=== PATIENT | female | born 1970 | race Caucasian/White ===

== ENCOUNTER 2017-03-04 15:34 | Observation (INO) | payer BC ==
--- NOTE | ~2017-03-04 | CN ---
Consultation Report [facility] [address] [place]. [address] NAME: ZEHRA BIRD : 74 STATUS : ADM Joyce PAT#: [id number] AGE: 46 ADM/REG DATE : 03/04/17 MR#: [id number] REPORT SERV DATE: 03/04/17 DICTATED BY: DATE: REPORT STATUS : Draft TRANSCRIBED BY: MODL DATE: 03/04/17 NEUROLOGY CONSULTATION DATE OF CONSULTATION: 03/04/2017 REASON FOR CONSULT: Possible stroke. HISTORY OF PRESENT ILLNESS: This is a 46-year-old female who presented to [facility]. The patient was at work shortly after lunch at roughly 1315 hours. The patient was noted to have tunnel vision as well as became very diaphoretic. The patient developed right upper extremity numbness but denies any weakness. The patient denies any confusion. Denies any dysarthria. The patient feels dizzy as if the room is spinning and feels as if about to pass out; however, the patient did not loose any consciousness, remembered what has been going on. The patient otherwise denies any weakness in the lower extremity and denies any left upper extremity involvement. The patient reports feeling abnormal but otherwise denies any other symptoms. Denies any recent illness, fever, chills, nausea, vomiting, chest pain, or shortness of breath and denies any recent changes in medication. The patient's symptoms subsequently improved except for the right upper extremity numbness which has persisted. The patient still denies any focal weakness, and denies any dysarthria. The patient denies any headache and denies similar symptoms in the past. PAST MEDICAL HISTORY: The patient's past medical history is significant for history of a hysterectomy secondary to uterine cancer as well as history of asthma and diabetes. The patient has had a history of depression. The patient, upon ER presentation, was noted to have elevated blood pressure, systolic in the 200s, subsequently improved. The patient denies any history of blood pressure issues. FAMILY HISTORY: Significant for type 1 diabetes as well as father with history of stroke with the patient's mother having some mild carotid disease. The patient's family history is also significant for coronary artery disease and no family history of significant clots or pulmonary embolism. SOCIAL HISTORY: Denies tobacco, alcohol, or recreational drug usage. ALLERGIES: THE PATIENT REPORTS NO KNOWN DRUG ALLERGIES. REVIEW OF SYSTEMS: Negative except for those mentioned in the HPI. MEDICATIONS: The patient's home medications consist of 1. Albuterol. 2. Vitamin C. 3. Lipitor 20 mg p.o. daily. 4. Wellbutrin. Consultation Report [facility] [id number] [place]. [address] NAME: ZEHRA BIRD : 74 STATUS : ADM Joyce PAT#: [id number] AGE: 46 ADM/REG DATE : 03/04/17 MR#: [id number] REPORT SERV DATE: 03/04/17 DICTATED BY: DATE: REPORT STATUS : Draft TRANSCRIBED BY: MODL DATE: 03/04/17 5. Advil. 6. Megace. 7. Glucophage. 8. Zinc. PHYSICAL EXAMINATION: VITAL SIGNS: The patient at the time of evaluation demonstrated vital signs with T-max of 97.8, heart rate of 105, respirations of 16, and blood pressure of 138/71. GENERAL: The patient is well developed, well nourished, in no acute distress. CARDIOVASCULAR: Regular rate and rhythm. No carotid bruits were otherwise auscultated. PULMONARY: Examination was clear to auscultation bilaterally. NEUROLOGICAL EXAMINATION: Generally, the patient is alert and oriented to person, place, year, and month. Follows simple and 2-step commands. No dysarthria. No aphasia was otherwise appreciated. Intact registration and recall. Cranial nerves 2 through 12, pupils equal, round, and reactive to light. Extraocular eye movement was noted to be intact with intact peripheral vision. Symmetrical facial expression and sensation. Midline tongue. Normal palatal movement. Normal hearing. The patient demonstrated 5/5 bilateral upper and lower extremity strength with the patient demonstrated no pronator drift. Reports decreased sensation in the right upper extremity but otherwise was not noted to have any sensory neglect. The patient is able to decipher letters written in the palm of right hand. At the time of evaluation, the patient was noted to have deep tendon reflex of 2+ throughout. Normal fsuawj-jx-htcy examination without ataxia. Gait was deferred secondary to acute events. LABORATORY STUDIES: Demonstrated sodium 139, potassium 3.9, chloride of 103, bicarb 27, BUN of 11, creatinine of 0.83, glucose of 123, and calcium of 8.8. The patient was noted to have white blood cell count of 7.7, hemoglobin of 14.4, hematocrit of 43.7, and platelet count of 293. CT scan of the brain without contrast demonstrated no acute process with CT angiogram demonstrated no significant proximal vessel stenosis. Internal carotid artery does not appear to have any stenotic blockage. IMPRESSION: 1. Numbness symptom onset at 1315 hours with tunnel vision, diaphoresis as well as right upper extremity numbness with symptoms improve except for the numbness. NIH stroke scale was noted to be 1. CT scan of the brain otherwise demonstrated no acute event with the CT angiogram of the head and neck demonstrating no significant large vessel thrombosis or stenosis or blockage. We will admit the patient for observation and perform stroke workup and Alteplase was not offered secondary to mild sensory symptoms. RECOMMENDATIONS: 1. Observation. 2. Aspirin 325 mg p.o. daily. 3. Lipitor increased to 80 mg p.o. at bedtime. 4. No PT, OT, and Speech Therapy secondary to lack of motor symptom and no history of dysarthria. 5. MRI of the brain without contrast. Consultation Report [address] [place]. [address] NAME: ZEHRA BIRD : 74 STATUS : ADM Joyce PAT#: [id number] AGE: 46 ADM/REG DATE : 03/04/17 MR#: [id number] REPORT SERV DATE: 03/04/17 DICTATED BY: DATE: REPORT STATUS : Draft TRANSCRIBED BY: MODL DATE: 03/04/17 6. Echocardiogram with bubble study. 7. Fasting lipid panel and hemoglobin A1c. [facility]/MODL Jayjay Crowley MD / [id number] CC: Ned Colunga Jr, MD
--- NOTE | ~2017-03-04 | HP ---
History And Physical [facility] [address] [place]. [address] NAME: ZEHRA BIRD : 74 STATUS : ADM Joyce PAT#: [id number] AGE: 46 ADM/REG DATE : 03/04/17 MR#: [id number] REPORT SERV DATE: 03/05/17 DICTATED BY: JR. COLUNGA WILLIAM JOHN DATE: 03/04/17 REPORT STATUS : Draft TRANSCRIBED BY: DANA DATE: 03/04/17 DATE OF ADMISSION: 03/04/2017 HISTORY OF PRESENT ILLNESS: A 46-year-old female with a history of diabetes mellitus type 2, presents to the emergency room with a presyncopal type symptoms. 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 She says about 1 p.m. she was on the phone and had sudden development of tunnel vision with a sweaty feeling. She called the nurse at the clinic who checked her blood pressure with a systolic pressure of 160 and a heart rate of 104. She then developed a tingly feeling over her whole body and subsequently had blood pressure checks with systolic pressures from 160 to 200. She was directed to the emergency room, en route she developed some right arm tingling feeling. Upon entry to the emergency room, code stroke was called. The patient had a CT of the head and was evaluated by Neurology. There was no evidence of stroke. I have been asked to admit for TIA. She denies any shaking, loss of bowel or bladder control, palpitations, or chest pain. Symptoms have currently resolved. PAST MEDICAL HISTORY: Includes, 1. History of asthma. 2. Uterine cancer with a hysterectomy in 2005. 3. Gastroesophageal reflux disease. 4. Diabetes mellitus type 2. 5. Status post cholecystectomy. 6. Status post hysterectomy. 7. History of sinus surgery. 8. Status post left Alexander cyst removal. 9. Pressure equalization tubes. 10.History of keloid removed from behind her left ear. HOME MEDICATIONS: Include, 1. Albuterol two puffs as needed. 2. Vitamin C 500 mg in the morning. 3. Lipitor 20 mg daily. 4. Bupropion 200 mg twice a day. 5. Ibuprofen 400 as needed. 6. Megace 40 mg as needed. 7. Metformin 1000 mg twice a day. 8. Zinc 50 mg daily. ALLERGIES: ALLERGIES ARE ENVIRONMENTAL. NO KNOWN DRUG ALLERGIES. FAMILY HISTORY: Father at age 64 of end-stage renal disease and diabetes. Mother living, has peripheral vascular disease. One brother living, unknown history. SOCIAL HISTORY: She lives in [place], [place], with her and children. 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. She denies alcohol, tobacco, or illicit drugs. History And Physical [address] [place]. [address] NAME: ZEHRA BIRD : 74 STATUS : ADM Joyce PAT#: [id number] AGE: 46 ADM/REG DATE : 03/04/17 MR#: [id number] REPORT SERV DATE: 03/05/17 DICTATED BY: JR. COLUNGA WILLIAM JOHN DATE: 03/04/17 REPORT STATUS : Draft TRANSCRIBED BY: DANA DATE: 03/04/17 REVIEW OF SYSTEMS: Negative in all 12 systems reviewed except nausea and anxiety. PHYSICAL EXAMINATION: VITAL SIGNS: Temperature 97.8, blood pressure 138/71, heart rate 105, respiratory rate 16. GENERAL: Patient is alert and oriented, in no acute distress. HEENT: Pupils are equal, round, and reactive to light. Extraocular motion intact. Sclerae anicteric. Oropharynx clear. NECK: Supple. No jugular venous distention, thyromegaly, or bruits. LUNGS: Clear to auscultation bilaterally with symmetrical chest rise. ABDOMEN: Soft, nontender, bowel sounds present. EXTREMITIES: No clubbing, cyanosis, edema. NEUROLOGIC: Cranial nerves 2-12 intact. Strength and sensation were full and equal throughout. LYMPH NODE SURVEY: Negative in cervical and supraclavicular region. PSYCHIATRIC: Mood and affect were appropriate. Somewhat anxious. DERMATOLOGIC: No rash or other lesions noted. LABORATORY DATA: White count 7.7, hemoglobin 14.4, platelets 293. Sodium 139, potassium 3.9, chloride 103, bicarb 27, BUN 11, creatinine 0.8, glucose 123, total protein 7.3, albumin 4, calcium 8.8, total bilirubin 2.4, alkaline phosphatase 73. Troponin I of less than 0.02. AST 15, ALT of 29. CT of the brain without acute findings. EKG shows sinus rhythm at rate of 102 without acute changes. ASSESSMENT AND PLAN: A 46-year-old female with. 1. Transient ischemic attack, likely vasovagal syndrome based on symptomatology. We will check an MRI of the brain, echocardiogram, place her on telemetry for 24 hours. She has been placed on aspirin and a high-intensity statin. We will also check a urinalysis. 2. Diabetes mellitus type 2. Place her on sliding scale insulin. 3. History of uterine cancer with a history of hysterectomy. 4. Observation status. 5. I will follow this patient. WBernadetteF/CHARITOL Ned Colunga Jr, MD / [id number] CC: Ned Colunga Jr, MD
--- NOTE | ~2017-03-04 | DS ---
Discharge Summary [facility] [address] [place]. [address] NAME: ZEHRA BIRD : 74 STATUS : DIS Joyce PAT#: [id number] AGE: 46 ADM/REG DATE : 03/04/17 MR#: [id number] REPORT SERV DATE: 03/06/17 DICTATED BY: JR. LOZA WILLIAM JOHN DATE: 03/05/17 REPORT STATUS : Draft TRANSCRIBED BY: DANA DATE: 03/05/17 ADMISSION DATE: 03/04/2017 DISCHARGE DATE: 03/05/2017 DISCHARGE DIAGNOSES: Include: 1. Transient ischemic attack, likely a vasovagal response. 2. Ibm-npedkke-tnkxrwxae diabetes mellitus. 3. History of uterine cancer, status post hysterectomy. OPERATIONS/PROCEDURES AND TREATMENTS: Include: 1. CT of the brain with stroke protocol done 03/04/2017, which showed no acute intracranial abnormality. 2. Portable chest x-ray done 03/04/2017, which was normal with clear lungs, normal heart size. 3. CT angiogram of the neck and head, which was unremarkable appearance of the intracranial arterial circulation without high-grade stenosis or aneurysm. There was no significant carotid or vertebral stenosis. There was no acute intracranial abnormality. There was left maxillary sinus disease. 4. MRI of the brain done 03/04/2017, which showed no acute infarct or bleed. There was no evidence of any chronic deep white matter ischemic changes. 5. Echocardiogram done 03/05/2017 showed left ventricular systolic and diastolic function intact with an ejection fraction of 50%. Right ventricular systolic function was intact. There was no significant valvular disease. No source of embolism was noted. DISCHARGE MEDICATIONS: Include: 1. Vitamin C 500 mg orally daily. 2. Lipitor 20 mg orally daily. 3. Wellbutrin 200 mg orally twice a day. 4. Megace 40 mg orally as needed. 5. Metformin 1000 mg twice a day, holding until 03/06/2017. 6. Albuterol high-flow aerosol two puffs daily p.r.n. 7. Zinc 50 mg orally daily. 8. Ibuprofen 400 mg as needed for headaches. HOSPITAL COURSE: The patient is a 46-year-old female with diabetes mellitus type 2, who presented to the emergency room with presyncopal-type symptoms. The patient was on the phone approximately 1 p.m. on the day of presentation when she developed tunnel vision along with sweaty feeling. She had tingling sensation over her entire body. The patient works in the medical field, called a nurse who was nearby and several blood pressures were taken all with a systolic pressure between 160 and 200. The patient was transported to the hospital. In route, she had some right arm tingling. In the emergency room, a code stroke was called. A CT of the head was done and evaluated by Neurology. There was no evidence of stroke. The patient was admitted for further workup. Initial exam showed temperature 97.8, blood pressure 138/71, heart rate 105, respiratory rate 16. Exam was normal. Laboratory was unremarkable. EKG was unremarkable. Discharge Summary [address] [address] NAME: ZEHRA BIRD : 74 STATUS : DIS Joyce PAT#: [id number] AGE: 46 ADM/REG DATE : 03/04/17 MR#: [id number] REPORT SERV DATE: 03/06/17 DICTATED BY: JR. LOZA WILLIAM JOHN DATE: 03/05/17 REPORT STATUS : Draft TRANSCRIBED BY: DANA DATE: 03/05/17 The patient was admitted to the Clinical Decision Unit for observation. She had an MRI, an echocardiogram, and CT angiogram of the neck and head, all of which are detailed above and all of which were unremarkable. The patient was maintained on telemetry, had no significant arrhythmias and is completely recovered at this point. She also had a urinalysis, which showed no evidence of pyuria. The patient will be discharged home today 03/05/2017 if okay with Neurology. We will clarify discharge orders from Neurology regarding aspirin and Lipitor. The patient will follow up with her primary care provider, Leora Corcoran in one to two weeks. For discharge exam and laboratory, please see daily progress note. DICTATED BY: Ned Loza Jr, MD WBernadetteF/DANA Ned Loza Jr, MD / [id number] CC: Ned Loza Jr, MD LYNCH, SUSAN R.
[2017-03-04 15:33] LABS: BASOPHILS 0.4 %; BASOPHILS ABSOLUTE 0.03 10/3/uL (0.0-0.16); EOSINOPHILS 0.6 %; EOSINOPHILS ABSOLUTE 0.05 10/3/uL (0.0-0.53); ER CBC TAT 0 Hrs 05 Mins; HEMATOCRIT 43.7 % (36.0-48.0); HEMOGLOBIN 14.4 g/dL (12.0-16.0); IMMATURE GRANULOCYTES 0.3 %; IMMATURE GRANULOCYTES ABSOLUTE 0.02 10/3/uL (0.0-0.11); LYMPHOCYTES 22.2 %; LYMPHOCYTES ABSOLUTE 1.71 10/3/uL (0.67-4.30); MEAN CORPUSCULAR HEMOGLOB 28.6 pg (26.0-34.0); MEAN CORPUSCULAR VOLUME 86.7 fL (80-100); MEAN PLATELET VOLUME 9.5 fL (9.2-13.0); MONOCYTES 5.1 %; MONOCYTES ABSOLUTE 0.39 10/3/uL (0.21-1.20); NEUTROPHILS 71.4 %; PLATELET COUNT 293 10/3/uL (150-400); RED CELL COUNT 5.04 10/6/uL (4.0-5.6); WHITE BLOOD CELLS 7.7 10/3/uL (4.5-10.5)
[~2017-03-04 15:34] MED LIST: ADVIL PO; GLUCOPHAGE1000 MG PO; GLUCPH PO; LIPITOR20 PO; MEG40 PO; PRAVAC PO; PROAIR HFA INH; VITC500 PO; WELLBUTRIN200 MG PO; WELLSR150 PO; ZINC PO; ZOFRANODT8 PO
[2017-03-04 15:36] LABS: MANUAL DIFF NO %
[2017-03-04 15:45] LABS: PARTIAL THROMBO TIME 29.7 SEC (22.5-37.2); PROTIME (NOT ORD) 13.2 SEC (12.0-14.5)
[2017-03-04 15:50] LABS: A/G RATIO 1.2 (0.7-1.9); ALKALINE PHOSPHATASE 73 U/L (45-117); BUN (BLOOD UREA NITROGEN) 11 MG/DL (6-23); CALCIUM, SERUM 8.8 MG/DL (8.5-10.4); CHLORIDE, SERUM 103 MMOL/L (96-112); CO2 (CARBON DIOXIDE) 27 MMOL/L (24-34); CREATININE 0.83 MG/DL (0.55-1.02); GFR AFRICAN AMERICAN 99 ML/MIN (>=60); GFR NON AFRICAN AMERICAN 86 ML/MIN (>=60); GLOBULIN 3.3 G/DL (2.5-4.1); GLUCOSE, SERUM 123 MG/DL (60-99); POTASSIUM, SERUM 3.9 MMOL/L (3.5-5.3); SGOT(AST) 15 U/L (5-40); SGPT(ALT) 29 U/L (5-65); SODIUM, SERUM 139 MMOL/L (135-148); TOTAL BILIRUBIN 0.4 MG/DL (0-1.2); TOTAL PROTEIN 7.3 G/DL (6.0-8.5); TROPONIN I <0.02 NG/ML (<0.05)
[2017-03-04 21:17] LABS: INFLUENZA A SCREEN NEGATIVE (NEGATIVE); INFLUENZA B SCREEN NEGATIVE (NEGATIVE)
[2017-03-04 22:21] LABS: ASCORBIC ACID (UR NOT ORDER) NEG (NEG); BILIRUBIN, URINE NEGATIVE (NEG); KETONE, URINE NEGATIVE (NEG); LEUKOCYTE ESTERASE(NOT OR NEG (NEG); WBC (NOT ORDERED) (RFLEX) 1 (0-5)
[2017-03-05 00:33] LABS: CPK 81 U/L (0-200); TROPONIN I <0.02 NG/ML (<0.05)
[2017-03-05 00:35] LABS: CK-MB 0.6 NG/ML
[2017-03-05 08:04] LABS: CPK 75 U/L (0-200); TROPONIN I <0.02 NG/ML (<0.05)
[2017-03-05 08:06] LABS: CK-MB 1.2 NG/ML
[2017-03-05] MEDS ORDERED: ASAB PO (16:12)
[2017-03-05] MEDS ORDERED: LIPITOR80 MG (16:12)
[2017-03-05 19:48] LABS: CREATININE 0.8 MG/DL (0.55-1.02)
== END 2017-03-05 16:20 | disposition home or self-care (01) ==
LOC: ER 15:34 → CDU1 16:14 → CDU2 16:52
PROVIDERS: Internal Medicine; Physician Assistant; Psychiatry & Neurology Neurology
DX: G45.9 Transient cerebral ischemic attack, unspecified (principal); E11.9 Type 2 diabetes mellitus without complications; J45.909 Unspecified asthma, uncomplicated; K21.9 Gastro-esophageal reflux disease without esophagitis; F32.9 Major depressive disorder, single episode, unspecified; Z90.710 Acquired absence of both cervix and uterus; Z90.49 Acquired absence of other specified parts of digestive tract; Z85.42 Personal history of malignant neoplasm of other parts of uterus; Z84.1 Family history of disorders of kidney and ureter; Z83.3 Family history of diabetes mellitus; Z79.84 Long term (current) use of oral hypoglycemic drugs; Z79.899 Other long term (current) drug therapy; Z98.890 Other specified postprocedural states
CPT/HCPCS: 36415; 70450; 70496; 70498; 70551; 71010; 80053; 81001; 82140; 82550; 82553; 82962; 83036; 84484; 85025; 85610; 85730; 86850; 86900; 86901; 87804; 93005; 93306; 96372; 99285; A9270-GY; G0378; Q9967